=== PATIENT | female | born 1950 | race Caucasian/White ===

== ENCOUNTER 2017-10-01 13:55 | Outpatient (CLI) | payer MEDICARE | END 2017-10-01 13:56 | disposition home or self-care (01) | LOC: BICMAMMO 13:55 | PROVIDERS: ATTEND Family Medicine | DX: Z12.31 Encounter for screening mammogram for malignant neoplasm of breast (principal); M81.0 Age-related osteoporosis without current pathological fracture; Z80.3 Family history of malignant neoplasm of breast | CPT/HCPCS: 77063; 77067; 77080 ==

== ENCOUNTER 2017-12-13 13:34 | Outpatient (CLI) | payer MEDICARE ==
--- NOTE | 2017-12-13 15:10 | MRI ---
MRI LUMBAR SPINE WITHOUT CONTRAST: INDICATION: Low back pain down both legs. TECHNIQUE: Multiplanar, multisequence MR images were obtained of the lumbar spine without IV contrast. NO mela risons are available. FINDINGS: The visualized retroperitoneum appears within normal limits. There is a left retroaortic renal vein incidentally noted. Bone marrow signal intensity appears within normal limits. The conus is seen to terminate at approximately T12-L1. At L5-S1, there is an asymmetric to left disk-osteophyte complex with facet degenerative disease garcia cing moderate to severe left and mild right neural foraminal narrowing. There is a suspected compone nt of this far left lateral disk-osteophyte complex that probably contacts and displaces the exited l eft L5 nerve root posteriorly best seen on image 54 of series 6. There is grade I anterolisthesis of L4 on L5. There is severe facet joint degenerative change. The grade I anterolisthesis in addition to the broad-based disk bulge and facet hypertrophy induces mild central canal narrowing. There is mild bilateral neural foraminal narrowing. At L3-4, there is a broad-based bulge with facet hypertrophy inducing mild central canal narrowing wi th mild bilateral neural foraminal narrowing. At L2-3, there is an asymmetric to the right broad-based disk bulge in addition to facet hypertrophy inducing severe right neural foraminal narrowing and mild left neural foraminal narrowing. There is also mild to moderate central canal narrowing at this level due to the broad-based bulge. At L1-L2, there is no appreciable central canal or neural foraminal narrowing. At T12-L2, there is no appreciable central canal or neural foraminal narrowing. IMPRESSION: 1. Asymmetrical to the right disk bulge with facet hypertrophy at L2-3 producing severe right neural foraminal narrowing and mild to moderate central canal narrowing. 2. Mild central canal narrowing seen at L4-5 and L3-4. 3. Asymmetric to the left disk-osteophyte complex causing moderate to severe narrowing of the left L 5-S1 neural foramina. The extent of the far left protruding disk-osteophyte complex likely impinges on the exited left L5 nerve root and displaces the nerve slightly posteriorly. POS: [facility]
== END 2017-12-13 13:35 | disposition home or self-care (01) ==
LOC: TBSIIMAG 13:34
PROVIDERS: ATTEND Nurse Practitioner Family
DX: M51.16 Intervertebral disc disorders with radiculopathy, lumbar region (principal); M48.061 Spinal stenosis, lumbar region without neurogenic claudication; M99.83 Other biomechanical lesions of lumbar region; M25.78 Osteophyte, vertebrae
CPT/HCPCS: 72148

== ENCOUNTER 2019-02-13 11:45 | Outpatient (CLI) | payer MEDICARE ==
--- NOTE | 2019-02-13 12:24 | MMO ---
Bilateral MAMMO Bilat Screen [facility]. CLINICAL HISTORY: Patient is 68 years old and is seen for screening. The patient has the following family history of breast cancer: father, at age 50. The patient has no personal history of cancer. VIEWS: The views performed were: bilateral craniocaudal with tomosynthesis and bilateral mediolateral oblique with tomosynthesis. FILMS COMPARED: The present examination has been compared to prior imaging studies performed at [facility] on 08/23/2014, 09/12/2015, 09/18/2016 and 10/01/2017. MAMMOGRAM FINDINGS: There are scattered fibroglandular densities. There are no suspicious masses, calcifications or areas of architectural distortion. There are benign appearing calcifications in both breasts. There are no suspicious masses, suspicious calcifications, or new areas of architectural distortion. IMPRESSION: THERE IS NO MAMMOGRAPHIC EVIDENCE OF MALIGNANCY. A ROUTINE FOLLOW-UP MAMMOGRAM IN 1 YEAR IS RECOMMENDED. THE RESULTS OF THIS EXAM WERE SENT TO THE PATIENT. ACR BI-RADS Category 2 - Benign finding MAMMOGRAPHY NOTE: 1. A negative mammogram report should not delay a biopsy if a dominant of clinically suspicious mass is present. 2. Approximately 10% to 15% of breast cancers are not detected by mammography. 3. Adenosis and dense breasts may obscure an underlying neoplasm. Reported by: CESAR PAIGE MD Electonically Signed: [id number]
== END 2019-02-13 11:46 | disposition home or self-care (01) ==
LOC: BICMAMMO 11:45
PROVIDERS: ATTEND Family Medicine
DX: Z12.31 Encounter for screening mammogram for malignant neoplasm of breast (principal)
CPT/HCPCS: 77063; 77067

== ENCOUNTER 2019-07-20 13:36 | Outpatient (CLI) | payer MEDICARE ==
--- NOTE | 2019-07-20 16:52 | MRI ---
EXAM: RIGHT HIP MRI WITHOUT IV CONTRAST: History: M25.551, bilateral hip pain, worse on the left side. FINDINGS: Multiplanar, multisequence MRI examination of the right hip is performed. There is evidence for fluid in the right trochanteric bursa. There is considerable muscle volume loss and fatty change of the gl uteus minimum and gluteus medius muscles. Severe right hip joint arthrosis with prominent hypertrophi c osteophytosis changes, particularly laterally and superiorly. There is some fluid within the tendon sheath of the rectus femoris tendon, indirect head. No significant abnormal marrow signal to suggest avascular necrosis or fracture. IMPRESSION: Prominent right hip arthrosis and degenerative change. Multiple hypertrophic osteophytosis changes, p articularly anteriorly with generalized marked narrowing of the right hip joint, particularly anterio rly and laterally. Evidence for right sided trochanteric bursitis. Small amount of fluid within the rectus femoris indirect head tendon sheath, evidence for some minima l tenosynovitis. Considerable muscle volume loss. Other findings as above. POS: [facility]
--- NOTE | 2019-07-20 17:14 | MRI ---
LEFT HIP MRI WITHOUT IV CONTRAST: History: Bilateral hip pain, worse on the left side. FINDINGS: Multiplanar, multisequence MRI examination of the left hip is performed. There is extensive abnormal marrow signal involving the left femoral head, particularly laterally and anteriorly with the marrow edema extending into the femoral neck and to the intertrochanteric level. There is very severe narrow ing of the left hip joint with what appears to be some subtle subchondral collapse. I favor this repr esenting an insufficiency or stress related fracture given all the extensive marrow edema. The possib ility that this represents some component of osteonecrosis must be considered as well. There is exten sive hypertrophic osteophytosis in the lateral and superior left articular and periarticular region. There is abnormal marrow signal of the lateral acetabulum. There is severe muscle volume loss of the gluteus minimum muscle in the trochanteric bursa, concerning for trochanteric bursitis. IMPRESSION: Very extensive abnormal marrow signal involving the superolateral aspect of the femoral head extendin g into the femoral neck and intertrochanteric regions with some minimal subchondral collapse, probabl y related to extensive long-standing insufficiency or stress like fracture although certainly some co mponent of avascular or osteonecrosis is a consideration. Abnormal marrow signal of the lateral acrom ion. Extensive articular and periarticular osteophytes and probably some associated synovitis changes involving the lateral hip joints and periarticular regions. Evidence for trochanteric bursal fluid a nd bursitis. Very severe muscle volume loss of the gluteus minimum muscle. Other findings as above. POS: [facility]
== END 2019-07-20 13:37 | disposition home or self-care (01) ==
LOC: TBSIIMAG 13:36
PROVIDERS: ATTEND Anesthesiology Pain Medicine
DX: M25.552 Pain in left hip (principal); M25.551 Pain in right hip; M16.11 Unilateral primary osteoarthritis, right hip; M70.61 Trochanteric bursitis, right hip; M65.9 Synovitis and tenosynovitis, unspecified

== ENCOUNTER 2019-10-19 12:34 | Outpatient (CLI) | payer MEDICARE ==
--- NOTE | 2019-10-19 12:58 | RAD ---
EXAM: XR Lumbar Spine Min 4 View PROVIDED CLINICAL HISTORY: Lumbar spondylolisthesis. Left leg and back pain. COMPARISON: None FINDINGS: There are 5 nonrib-bearing lumbar-type vertebral bodies. Multilevel osteophytes are present with prom inent bridging osteophytes at the T12-L1 and L1-2 levels. Narrowing of the intervertebral disc space is present at the L2-3, L3-4, and L5-S1 levels. Grade 1 anterolisthesis of L4 on L5 is present which measures approximately 6 mm on both flexion and extension. No additional level of subluxation is seen. The vertebral body heights are within normal limits, and no fracture is visualized. IMPRESSION: 1. Grade 1 anterolisthesis of L4 on L5 without abnormal translational motion. 2. Multilevel degenerative changes lumbar spine.
--- NOTE | 2019-10-19 14:07 | MRI ---
MRI OF THE LUMBAR SPINE WITHOUT CONTRAST: DATE: 10/19/2019. HISTORY: Left leg and back pain, radiculopathy. TECHNIQUE: Multiplanar, multisequence MR imaging of the lumbar spine is provided without contrast. FINDINGS: On the basis of 5 lumbar-type vertebral bodies, conus medullaris terminates at the T12 level. The sagittal STIR imaging demonstrates no focal area of osseous marrow edema within the lumbar spine. T12-L1: Mild bilateral facet hypertrophy. There is right-sided anterior osteophyte formation. Ther e is disk desiccation. No significant central canal or neural foraminal stenosis. L1-2: Anterior osteophyte formation and bilateral facet hypertrophy noted. No significant central c anal stenosis. Left-sided facet hypertrophy is noted with mild left neural foraminal stenosis. No r ight neural foraminal stenosis. L2-3: There is disk space narrowing, disk desiccation, and disk bulge. There is bilateral facet hyp ertrophy and hypertrophy of the ligamentum flavum, right greater than left. There is mild central ca nal stenosis with a moderate degree of right lateral recess stenosis. Vacuum disk formation is noted . There is severe right neural foraminal stenosis. No significant left neural foraminal stenosis. Anterior osteophyte formation. L3-4: Bilateral facet hypertrophy and hypertrophy of the ligamentum flavum. There is disk space pedro rowing with disk desiccation and mild disk bulge causing a mild to moderate degree of central canal s tenosis. Bilateral facet hypertrophy leads to bilateral moderate neural foraminal stenosis, left gre ater than right. There is right and left lateral osteophyte formation as well. L4-5: Anterolisthesis of L4 on L5 noted measuring 7 mm. Moderate bilateral facet hypertrophy and hy pertrophy of the ligamentum flavum. Mild left and moderate right neural foraminal stenosis with mild /moderate central canal stenosis. L5-S1: Bilateral facet hypertrophy, left greater than right. No significant right neural foraminal stenosis. There is moderate/severe left neural foraminal stenosis and there is mild central canal st enosis. The imaged retroperitoneal structures appear grossly unremarkable. IMPRESSION: Prominent multilevel lumbar spine degenerative change as described above. POS: [facility]
== END 2019-10-19 12:35 | disposition home or self-care (01) ==
LOC: TBSIIMAG 12:34
PROVIDERS: ATTEND Neurological Surgery
DX: M43.16 Spondylolisthesis, lumbar region (principal); M51.36 Other intervertebral disc degeneration, lumbar region; M47.816 Spondylosis without myelopathy or radiculopathy, lumbar region
CPT/HCPCS: 72110; 72148

== ENCOUNTER 2022-01-05 19:00 | Outpatient (CLI) | payer MEDICARE | END 2022-01-05 19:01 | disposition home or self-care (01) | LOC: SLEEPLAB 19:00 | PROVIDERS: ATTEND Family Medicine | DX: G47.33 Obstructive sleep apnea (adult) (pediatric) (principal); R06.83 Snoring; G47.10 Hypersomnia, unspecified; F32.9 Major depressive disorder, single episode, unspecified; G47.00 Insomnia, unspecified; F41.9 Anxiety disorder, unspecified | CPT/HCPCS: 95810 ==